=== PATIENT | female | born 1985 | race African-American/Black ===

== ENCOUNTER 2016-11-29 05:30 | Emergency (ER) ==
[2016-11-29 05:59] VITALS: BP 115/80
[2016-11-29 06:16] LABS: URINE SOURCE CLEAN CATCH
[2016-11-29 06:19] LABS: BILIRUBIN URINE NEGATIVE (NEGATIVE); BLOOD URINE 1+ (NEGATIVE); CLARITY SLIGHTLY CLOUDY (CLEAR); COLOR YELLOW; GLUCOSE URINE NEGATIVE (NEGATIVE); LEUKOCYTES URINE 2+ (NEGATIVE); NITRITE URINE NEGATIVE (NEGATIVE); PROTEIN URINE NEGATIVE (NEGATIVE); URINE MICROSCOPIC NEEDED? YES; UROBILINOGEN URINE NORMAL
[2016-11-29 06:30] LABS: URINE EPITHELIAL CELLS >10 /HPF (<10)
[2016-11-29] MEDS ORDERED: ZITHROMAX PO ONE (06:40)
[2016-11-29] MEDS ORDERED: XYLOCAINE-MPF 1% INJ ONE (06:40)
[2016-11-29] MEDS ORDERED: ROCEPHIN IM ONE (06:40)
--- NOTE | 2016-11-29 06:57 | PROVIDER DOCUMENTATION ---
HPI-Female /OB/Breast - General Chief Complaint: Female Stated Complaint: FEMALE Time Seen by Provider: 11/29/16 06:03 Source: reports: patient Allergies/Adverse Reactions: Patient Allergies Allergy/AdvReac Type Severity Reaction Status Date / Time Penicillins Allergy Mild RASH Verified 08/15/16 07:57 - History of Present Illness-Female /OB Nature of Presenting Problem: Reports vag discharge and itching. Denies preg. Reports she has h/o herpes but it is not flaring up currently. Reports she has been with the same partner since one year ago, but her symptoms started one week ago after having sex with him. The partner is asymptomatic. Denies concerns for HIC/hepatitis/syphilis, etc. Denies abd pain/F/C/N/V, no other concerns. Does patient report she is ?: No Location of complaint: reports: vaginal Radiation: reports: none Quality of Pain: reports: other (Itching) Severity in ED: reports: moderate Onset/Duration: reports: 1 week ago Timing: reports: still present Context/Activities at Onset: reports: sexual activity Vaginal Symptoms: reports: discharge, itching. denies: abnormal bleeding, foul odor, pain with intercourse, passing clots/tissue Vaginal Bleeding Amount: None Urinary Symptoms: reports: no symptoms Related Symptoms: reports: no symptoms Leakage of Fluid: none Sexual intercourse history: reports: Less Than 2 Months Ago, Single Partner Contraception: reports: other (Tubo) Modifying Factors: improves with: nothing Associated Symptoms: reports: denies symptoms. denies: constipation, cough, diarrhea, dizziness, fatigue, fever/chills, syncope, vomiting, weakness, trouble walking Similar Symptoms Previously?: No Recently seen or treated by another doctor?: No - LMP/ History Menstrual Status: irregular Review of Systems - Adult - REVIEW OF SYSTEMS - ADULT Constitutional: reports: no symptoms reported. denies: fever, fatique Eyes: reports: no symptoms reported Ears, Nose, Mouth & Throat: reports: no symptoms reported Cardiovascular: reports: no symptoms reported, see HPI Respiratory: reports: no symptoms reported, see HPI Gastrointestinal: reports: no symptoms reported, see HPI. denies: vomiting Genitourinary: reports: no symptoms reported, see HPI. denies: discharge, frequency, urinary retention Musculoskeletal: reports: no symptoms reported Integumentary: reports: no symptoms reported Neurological: reports: no symptoms reported Endocrine: reports: no symptoms reported Hematologic/Lymphatic: reports: no symptoms reported All Other Systems: Reviewed and Negative Past History - Adult - PAST MEDICAL HISTORY-ADULT Genitourinary: reports: other (Genital herpes) - PRIOR SURGERIES/PROCEDURES Surgical/Procedure History: reports: , other (tubal ligation) - IMMUNIZATION STATUS Childhood Immunizations: See Nurse Assessment Flu Vaccine: See Nurse Assessment Physical Exam-General - PHYSICAL EXAM-ADULT Initial Vital Signs Reviewed: Yes - CONSTITUTIONAL General Appearance: appears well, alert, no apparent distress - EYES Eyes: PERRL/EOMI, pink conjunctivae - HEAD, EARS, NOSE, MOUTH & THROAT HENMT: normocephalic/atraumatic, moist mucous membranes - NECK Neck: non-tender, full range of motion, supple - RESPIRATORY Respiratory: chest non-tender, lungs clear, normal breath sounds, no pleuratic chest pain - CARDIOVASCULAR Cardiovascular: normal peripheral pulses, regular rate, rhythm, no edema, no gallop - GASTROINTESTINAL (ABDOMEN) Abdominal Exam: normal bowel sounds, non tender, soft, no organomegaly - GENITOURINARY Female Genitalia/Pelvic Exam: external exam normal, discharge (White, not thick discharge noticed. No hepes ulcer seen.). negative: active bleeding, blood, cervicitis, herpes-like ulcerations, lesions, mass - LYMPHATIC Lymphatic: no adenopathy - MUSCULOSKELETAL Back Exam: normal inspection, no CVA tenderness, no vertebral tenderness Extremity: normal range of motion, non-tender, normal gait, normal inspection - SKIN Integumentary: normal color, normal turgor, warm/dry - PSYCHIATRIC Psych/Mental Status: normal mood/affect, normal thought content, normal thought process, oriented x 3 Progress - PLAN OF CARE/RESULTS Progress/Plan/Lab Results: Laboratory Results - last 24 hr 11/29/16 11/29/16 06:00 06:00 Urine Source CLEAN CATCH Urine Color YELLOW Urine Clarity SLIGHTLY CLOUDY A Urine pH 6.0 Ur Specific [place] 1.020 Urine Protein NEGATIVE Urine Ketones NEGATIVE Urine Blood 1+ A Urine Nitrite NEGATIVE Urine Bilirubin NEGATIVE Urine Urobilinogen NORMAL Urine Microscopic RBC 10-20 A Urine WBC 2+ A Urine Microscopic WBC 10-20 A Ur Epithelial Cells >10 A Urine Bacteria 1+ Urine Glucose NEGATIVE Urine Test NEGATIVE Vital Signs Temp Pulse Resp BP Pulse Ox 11/29/16 05:54 98.5 F 79 18 115/80 100 Penicillins Allergy (Mild, Verified 08/15/16 07:57) RASH Ciprofloxacin HCl [Cipro] 500 mg PO BID #14 tablet 11/29/16 Fluconazole [Diflucan] 150 mg PO DAILY #2 tablet 11/29/16 Metronidazole [Flagyl] 500 mg PO BID #14 tablet 11/29/16 Laboratory 11/29/16 11/29/16 06:00 06:00 Urine Source CLEAN CATCH Urine Color YELLOW Urine Clarity SLIGHTLY CLOUDY A Urine pH 6.0 Ur Specific [place] 1.020 Urine Protein NEGATIVE Urine Ketones NEGATIVE Urine Blood 1+ A Urine Nitrite NEGATIVE Urine Bilirubin NEGATIVE Urine Urobilinogen NORMAL Urine Microscopic RBC 10-20 A Urine WBC 2+ A Urine Microscopic WBC 10-20 A Ur Epithelial Cells >10 A Urine Bacteria 1+ Urine Glucose NEGATIVE Urine Test NEGATIVE Orders Category Date Time Status TEST-URINE [PREG] Stat Lab 11/29/16 06:[address] [URINALYSIS] Stat Lab 11/29/16 06:00 Completed URINE MICROSCOPIC [URINALYSIS] Stat Lab 11/29/16 06:00 Completed WET PREP [RM] Stat Lab 11/29/16 06:30 Completed Azithromycin [Zithromax] Med 11/29/16 06:40 Discontinued 1,000 mg PO NOW ONE CefTRIAXONE [Rocephin] Med 11/29/16 06:40 Discontinued 1 gm IM NOW ONE Lidocaine 1% Pf [Xylocaine-Mpf 1%] Med 11/29/16 06:40 Discontinued 5 ml INJ NOW ONE Departure - Departure Time of Disposition Order: 07:01 DIAGNOSIS: Vaginitis Qualifiers: Chronicity: acute Qualified Code(s): N76.0 - Acute vaginitis UTI (urinary tract infection) Qualifiers: Urinary tract infection type: acute cystitis Hematuria presence: without hematuria Qualified Code(s): N30.00 - Acute cystitis without hematuria Disposition: HOME 01 Certified Medical Emergency: Emergent Condition: Stable Additional Instructions: Follow up with regular MD in 2-3 days. Return to ER as needed. Prescriptions: Ciprofloxacin HCl [Cipro] 500 mg PO BID #14 tablet Fluconazole [Diflucan] 150 mg PO DAILY #2 tablet Metronidazole [Flagyl] 500 mg PO BID #14 tablet
== END 2016-11-29 07:26 | disposition home or self-care (01) ==
LOC: P.ED 05:30
DX: N76.0 Acute vaginitis (principal); N30.00 Acute cystitis without hematuria; N89.8 Other specified noninflammatory disorders of vagina; L29.2 Pruritus vulvae
CPT/HCPCS: 81001; 81025; 87210; 96372; J0696